=== PATIENT | male | born 1975 | race Caucasian/White ===

== ENCOUNTER 2024-03-20 22:05 | Inpatient (IN) | payer OTHER ==
[~2024-03-20] VITALS: Ht 165.1 cm; Wt 106.6 kg
[2024-03-20 22:39] VITALS: BP 169/106; PULSE 94; RESP 16; TEMP 97.7; O2SAT 98
[2024-03-21] MEDS: HYDROcodone/APAP 5/325 MG 1 TAB TAB PO ONE (02:17)
[2024-03-21] MEDS: KETOROLAC 30 MG/ML VIAL IM ONE (02:18)
[2024-03-21 02:28] LABS: BASOPHILS % (AUTO) 0.3 % (0.0-2.0); EOSINOPHILS # (AUTO) 0.2 K/uL (0-0.4)
[2024-03-21 02:32] LABS: EOSINOPHILS % (AUTO) 1.7 % (0.0-4.0); HEMATOCRIT 42.7 % (36-52); HEMOGLOBIN 14.5 g/dL (12.0-18.0); LYMPHOCYTES # (AUTO) 1.9 K/uL (2.0-11.5); LYMPHOCYTES % (AUTO) 13.7 % (20.5-51.1); MEAN CORPUSCULAR HEMOGLOBIN 29 pg (27-31); MEAN CORPUSCULAR HGB CONC 34 g/dL (33-37); MEAN CORPUSCULAR VOLUME 85.6 fL (80-94); MONOCYTES # (AUTO) 1.2 K/uL (0.8-1.0); NEUTROPHILS # (AUTO) 10.4 K/uL (1.8-7.7); NEUTROPHILS % (AUTO) 75.3 % (42.2-75.2); PLATELET COUNT (AUTO) 170 K/uL (140-450); RED BLOOD CELL COUNT(AUTO) 4.99 MIL/uL (4.20-6.10); RED CELL DISTRIBUTION WIDTH 14.2 % (11.6-13.7); WHITE BLOOD COUNT (AUTO) 13.8 K/uL (4.8-10.8)
[2024-03-21 02:36] LABS: ANION GAP 13.5 (8-16); CALCIUM 9.4 mg/dL (8.5-10.1); CARBON DIOXIDE 25.2 mmol/L (21-32); CREATININE 1.3 mg/dL (0.6-1.3); POTASSIUM 3.7 mmol/L (3.5-5.1)
[2024-03-21] MEDS ORDERED: LIDOCAINE MPF 1% 5 ML ONE ×2 (04:41)
[2024-03-21] MEDS: MORPHINE SULFATE 4 MG/ML SYR IVP ONE (05:38)
[2024-03-21] MEDS ORDERED: cefTRIAXone 2,000 MG VIAL ONE (07:00)
[2024-03-21] MEDS: cefTRIAXone 2,000 MG in DEXTROSE 5% 100 ML IV ONE (07:08)
[2024-03-21] MEDS ORDERED: DAPA5TAB PO (07:29)
[2024-03-21] MEDS ORDERED: FURO-572 PO (07:29)
[2024-03-21] MEDS ORDERED: METF-1139 PO (07:29)
[2024-03-21] MEDS ORDERED: ASPI-1205 PO (07:29)
[2024-03-21] MEDS ORDERED: ATOR10TA51 PO (07:29)
[2024-03-21] MEDS ORDERED: VANCOMYCIN 1,000 MG VIAL ONE ×2 (08:04)
[2024-03-21] MEDS: VANCOMYCIN 1,500 MG in DEXTROSE 5% 250 ML IV ONE (08:06)
[2024-03-21] MEDS ORDERED: KCL 20 MEQ IN 100 mL PREMIX 200 ML IV PRN (08:55)
[2024-03-21] MEDS ORDERED: MAG SULF 2000 MG/WATER PREMIX 50 ML IV PRN (08:55)
[2024-03-21] MEDS ORDERED: ACETAMINOPHEN 325 MG TAB PO PRN (08:55)
[2024-03-21] MEDS ORDERED: ONDANSETRON 4 MG/2 ML VIAL IVP PRN ×2 (08:55→13:30)
[2024-03-21] MEDS ORDERED: VANCOMYCIN PER PHARMACY MC PRN (08:55)
[2024-03-21 09:36] LABS: LACTIC ACID 0.7 mmol/L (0.4-2.0)
[2024-03-21 10:00] VITALS: BP 136/99; PULSE 68; RESP 18; TEMP 97; O2SAT 97
[2024-03-21] MEDS: NACL 0.9% 1,000 ML IV SCH (10:46)
[2024-03-21 11:00] VITALS: PULSE 68; RESP 19; O2SAT 98
[2024-03-21] MEDS: PROPOFOL 200 MG/20 ML VIAL IV ONE ×2 (12:56→13:13)
[2024-03-21] MEDS: KETAMINE 500 MG/5 ML VIAL ONE (12:57)
[2024-03-21] MEDS: MIDAZOLAM 2 MG/2 ML VIAL ONE (13:01)
[2024-03-21] MEDS: LIDOCAINE/EPI 1% 1:100000 20 ML VIAL INJ ONE (13:09)
[2024-03-21] MEDS: ceFAZolin 2,000 MG VIAL ONE (13:15)
[2024-03-21] MEDS: BUPIVACAINE-MPF 0.25% 30 ML VIAL INJ ONE (13:22)
[2024-03-21] MEDS: hydrALAZINE 20 MG/ML VIAL ONE (13:23)
[2024-03-21] MEDS: MORPHINE SULFATE 4 MG/ML SYR IVP PRN (15:42)
[2024-03-21 16:00] VITALS: BP 147/107; PULSE 69; RESP 18; TEMP 97; O2SAT 99
[2024-03-21] MEDS: HYDROmorphone 1 MG/ML AMP IVP PRN (16:48)
[2024-03-21] MEDS: HYDROcodone/APAP 5/325 MG 1 TAB TAB PO PRN (19:03)
[2024-03-21 20:00] VITALS: PULSE 74; RESP 19; O2SAT 98
[2024-03-21] MEDS: VANCOMYCIN 1,000 MG in DEXTROSE 5% 250 ML IV SCH (21:17)
[2024-03-21] MEDS: VANCOMYCIN 1,000 MG VIAL ONE (21:21)
[2024-03-22] VITALS: BP 152/101; PULSE 75; RESP 18; TEMP 97.5; O2SAT 99
[2024-03-22 00:52] VITALS: TEMP 99.1
[2024-03-22 04:00] VITALS: BP 161/108; PULSE 87; RESP 18; TEMP 97.3; O2SAT 99
[2024-03-22] MEDS: cefTRIAXone 1,000 MG VIAL ONE (06:15)
[2024-03-22 07:20] LABS: BASOPHILS # (AUTO) 0.1 K/uL (0.00-0.22); BASOPHILS % (AUTO) 0.4 % (0.0-2.0); EOSINOPHILS # (AUTO) 0.1 K/uL (0-0.4); EOSINOPHILS % (AUTO) 0.8 % (0.0-4.0); HEMATOCRIT 43.8 % (36-52); HEMOGLOBIN 14.8 g/dL (12.0-18.0); LYMPHOCYTES # (AUTO) 1.8 K/uL (2.0-11.5); LYMPHOCYTES % (AUTO) 11.9 % (20.5-51.1); MEAN CORPUSCULAR HEMOGLOBIN 29 pg (27-31); MEAN CORPUSCULAR HGB CONC 34 g/dL (33-37); MEAN CORPUSCULAR VOLUME 85.1 fL (80-94); MONOCYTES # (AUTO) 1.3 K/uL (0.8-1.0); MONOCYTES % (AUTO) 8.3 % (1.7-9.3); NEUTROPHILS % (AUTO) 78.6 % (42.2-75.2); PLATELET COUNT (AUTO) 180 K/uL (140-450); RED BLOOD CELL COUNT(AUTO) 5.14 MIL/uL (4.20-6.10); RED CELL DISTRIBUTION WIDTH 14.2 % (11.6-13.7); WHITE BLOOD COUNT (AUTO) 15.3 K/uL (4.8-10.8)
[2024-03-22 07:40] LABS: ANION GAP 14.6 (8-16); CALCIUM 9.1 mg/dL (8.5-10.1); CARBON DIOXIDE 23.1 mmol/L (21-32); CREATININE 1.1 mg/dL (0.6-1.3); POTASSIUM 3.7 mmol/L (3.5-5.1)
[2024-03-22 08:00] VITALS: PULSE 95; RESP 20; TEMP 97.9; O2SAT 100
[2024-03-22 08:10] LABS: MAGNESIUM 1.8 mg/dL (1.8-2.4)
[2024-03-22 16:00] VITALS: BP 146/105; PULSE 95; RESP 18; TEMP 98.1; O2SAT 98
[2024-03-22] MEDS ORDERED: VANCOMYCIN PER PHARMACY MC PRN (19:05)
[2024-03-22 20:00] VITALS: BP 148/107; PULSE 105; RESP 18; RESP 20; TEMP 97.9; TEMP 98.6; O2SAT 100; O2SAT 98
[2024-03-22] MEDS: VANCOMYCIN 1GM/DEXT 5% PREMIX 200 ML IV ONE (20:32)
[2024-03-22] MEDS: MEDS-TO-BEDS MC SCH (20:38)
[2024-03-23 04:00] VITALS: BP 149/106; PULSE 92; RESP 18; TEMP 97.3; O2SAT 98
[2024-03-23 06:08] LABS: BASOPHILS # (AUTO) 0.1 K/uL (0.00-0.22); BASOPHILS % (AUTO) 0.6 % (0.0-2.0); EOSINOPHILS # (AUTO) 0.2 K/uL (0-0.4); EOSINOPHILS % (AUTO) 1.8 % (0.0-4.0); HEMOGLOBIN 14.3 g/dL (12.0-18.0); LYMPHOCYTES # (AUTO) 2.1 K/uL (2.0-11.5); MEAN CORPUSCULAR HEMOGLOBIN 28 pg (27-31); MEAN CORPUSCULAR HGB CONC 33 g/dL (33-37); MEAN CORPUSCULAR VOLUME 85.2 fL (80-94); MONOCYTES # (AUTO) 1.3 K/uL (0.8-1.0); NEUTROPHILS # (AUTO) 9.5 K/uL (1.8-7.7); NEUTROPHILS % (AUTO) 71.6 % (42.2-75.2); PLATELET COUNT (AUTO) 170 K/uL (140-450); RED BLOOD CELL COUNT(AUTO) 5.04 MIL/uL (4.20-6.10); WHITE BLOOD COUNT (AUTO) 13.2 K/uL (4.8-10.8)
[2024-03-23 06:35] LABS: ANION GAP 13.7 (8-16); CALCIUM 8.8 mg/dL (8.5-10.1); CARBON DIOXIDE 24.6 mmol/L (21-32); CREATININE 1.1 mg/dL (0.6-1.3); POTASSIUM 3.3 mmol/L (3.5-5.1)
[2024-03-23 06:52] LABS: MAGNESIUM 1.9 mg/dL (1.8-2.4)
[2024-03-23 06:53] LABS: PHOSPHORUS 3.1 mg/dL (2.5-4.9)
[2024-03-23 08:00] VITALS: PULSE 90; RESP 18; TEMP 96.4; O2SAT 97
[2024-03-23] MEDS: metFORMIN 500 MG TAB PO SCH (08:48)
[2024-03-23] MEDS: FUROSEMIDE 20 MG TAB PO SCH (08:48)
[2024-03-23] MEDS: ASPIRIN 325 MG TAB PO SCH (08:49)
[2024-03-23] MEDS: ATORVASTATIN 20 MG TAB PO SCH (08:49)
[2024-03-23] MEDS: POTASSIUM CHLORIDE 10 MEQ TABER PO PRN (09:42)
[2024-03-23] MEDS: VANCOMYCIN 1.25GM PREMIX 250 ML IV SCH (09:42)
[2024-03-23 16:00] VITALS: BP 155/104; PULSE 78; RESP 18; TEMP 96.9; O2SAT 99
[2024-03-23 20:00] VITALS: PULSE 85; RESP 19; TEMP 97.9; O2SAT 99
[2024-03-24] VITALS: BP 155/104; PULSE 78; PULSE 85; RESP 19; TEMP 96.9; O2SAT 99
[2024-03-24] MEDS ORDERED: hydrALAZINE 25 MG TAB PO PRN (03:40)
[2024-03-24 07:14] LABS: BASOPHILS # (AUTO) 0.1 K/uL (0.00-0.22); BASOPHILS % (AUTO) 0.6 % (0.0-2.0); EOSINOPHILS # (AUTO) 0.3 K/uL (0-0.4); EOSINOPHILS % (AUTO) 2.5 % (0.0-4.0); HEMATOCRIT 39.6 % (36-52); HEMOGLOBIN 13.1 g/dL (12.0-18.0); LYMPHOCYTES # (AUTO) 1.7 K/uL (2.0-11.5); MEAN CORPUSCULAR HEMOGLOBIN 28 pg (27-31); MEAN CORPUSCULAR HGB CONC 33 g/dL (33-37); MEAN CORPUSCULAR VOLUME 85.1 fL (80-94); NEUTROPHILS # (AUTO) 9.4 K/uL (1.8-7.7); NEUTROPHILS % (AUTO) 74.9 % (42.2-75.2); PLATELET COUNT (AUTO) 168 K/uL (140-450); RED BLOOD CELL COUNT(AUTO) 4.65 MIL/uL (4.20-6.10); RED CELL DISTRIBUTION WIDTH 13.9 % (11.6-13.7); WHITE BLOOD COUNT (AUTO) 12.5 K/uL (4.8-10.8)
[2024-03-24 07:25] LABS: MAGNESIUM 1.7 mg/dL (1.8-2.4); PHOSPHORUS 3.1 mg/dL (2.5-4.9)
[2024-03-24 07:28] LABS: ANION GAP 12.7 (8-16); CALCIUM 8.7 mg/dL (8.5-10.1); CARBON DIOXIDE 24.8 mmol/L (21-32); POTASSIUM 3.5 mmol/L (3.5-5.1)
[2024-03-24 08:00] VITALS: BP 162/104; PULSE 85; PULSE 92; RESP 19; TEMP 96.8; TEMP 97.9; O2SAT 98; O2SAT 99
[2024-03-24 16:00] VITALS: BP 144/107; PULSE 69; RESP 20; TEMP 97.9; O2SAT 98
[2024-03-24] MEDS: MAGNESIUM OXIDE 400 MG TAB PO PRN (17:03)
[2024-03-24 20:00] VITALS: BP 166/100; PULSE 78; RESP 18; TEMP 98.3; O2SAT 96; O2SAT 99
[2024-03-25 04:00] VITALS: BP 151/101; PULSE 80; RESP 18; TEMP 97.3; O2SAT 96
[2024-03-25 05:39] LABS: BASOPHILS # (AUTO) 0.1 K/uL (0.00-0.22); BASOPHILS % (AUTO) 0.6 % (0.0-2.0); EOSINOPHILS # (AUTO) 0.3 K/uL (0-0.4); EOSINOPHILS % (AUTO) 3.6 % (0.0-4.0); HEMATOCRIT 38.9 % (36-52); HEMOGLOBIN 13.1 g/dL (12.0-18.0); LYMPHOCYTES # (AUTO) 2.2 K/uL (2.0-11.5); LYMPHOCYTES % (AUTO) 22.3 % (20.5-51.1); MEAN CORPUSCULAR HEMOGLOBIN 29 pg (27-31); MEAN CORPUSCULAR HGB CONC 34 g/dL (33-37); MONOCYTES # (AUTO) 0.8 K/uL (0.8-1.0); NEUTROPHILS # (AUTO) 6.4 K/uL (1.8-7.7); NEUTROPHILS % (AUTO) 65.5 % (42.2-75.2); PLATELET COUNT (AUTO) 177 K/uL (140-450); RED BLOOD CELL COUNT(AUTO) 4.58 MIL/uL (4.20-6.10); RED CELL DISTRIBUTION WIDTH 13.6 % (11.6-13.7); WHITE BLOOD COUNT (AUTO) 9.7 K/uL (4.8-10.8)
[2024-03-25 06:37] LABS: ANION GAP 12.9 (8-16); CALCIUM 9.3 mg/dL (8.5-10.1); CARBON DIOXIDE 25.7 mmol/L (21-32); POTASSIUM 3.6 mmol/L (3.5-5.1)
[2024-03-25 07:06] LABS: MAGNESIUM 1.7 mg/dL (1.8-2.4); PHOSPHORUS 3.9 mg/dL (2.5-4.9)
[2024-03-25 08:00] VITALS: PULSE 80; RESP 18; TEMP 97.3; O2SAT 99
[2024-03-25] MEDS ORDERED: DOXY-487 PO (10:52)
[2024-03-25] MEDS ORDERED: LACT1TAB47 PO (10:52)
[2024-03-25 12:11] VITALS: BP 154/104; PULSE 20; RESP 20; TEMP 97.3
[2024-03-25] MEDS ORDERED: DOXY-22 PO (19:28)
[2025-03-21] MEDS ORDERED: ESMOLOL 100 MG/10 ML VIAL IV ONE (13:00)
== END 2024-03-25 14:35 | disposition home or self-care (01) | DRG 313 ==
LOC: MED 22:05 → MMU 03-21 08:51 → MTU 03-21 09:26
PROVIDERS: ADMIT Hospitalist; ATTEND Hospitalist
PROC: 0SBG0ZZ Excision of Left Ankle Joint, Open Approach (ICD-10-PCS; principal; 2024-03-21 12:00)
DX: M00.872 Arthritis due to other bacteria, left ankle and foot (principal); I11.0 Hypertensive heart disease with heart failure; I50.9 Heart failure, unspecified; E11.9 Type 2 diabetes mellitus without complications; F14.90 Cocaine use, unspecified, uncomplicated; F10.90 Alcohol use, unspecified, uncomplicated; Z79.899 Other long term (current) drug therapy
CPT/HCPCS: 20605; 36415; 71045; 73630; 80048; 80202; 83605; 83735; 84100; 84550; 85025; 85651; 86140; 87040; 87070; 87075; 87081; 87205; 93005; 96365; 96367; 96372; 97110; 97112; 97116; 97163-GP; 97530; 99285; J0360; J0696; J1170; J1644; J1885; J2001; J2250; J2270; J2704; J3370; J3372; J3490; J7060; Q0092

== ENCOUNTER 2024-03-26 14:36 | Emergency (ER) | payer OTHER ==
[~2024-03-26] VITALS: Ht 165.1 cm; Wt 106.3 kg
[~2024-03-26 14:36] MED LIST: ASPI-1205 PO; ATOR10TA51 PO; DAPA5TAB PO; DOXY-22 PO; FURO-572 PO; LACT1TAB47 PO; METF-1139 PO
[2024-03-26 15:27] VITALS: BP 128/95; PULSE 73; RESP 18; TEMP 97.7; O2SAT 97
[2024-03-26] MEDS ORDERED: cefTRIAXone 2,000 MG VIAL ONE (17:24)
[2024-03-26] MEDS: cefTRIAXone 2,000 MG in DEXTROSE 5% 100 ML IV ONE (17:27)
[2024-03-26] MEDS: MORPHINE SULFATE 2 MG/ML SYR IVP ONE (17:51)
[2024-03-26 18:08] VITALS: BP 127/94; PULSE 66; RESP 12; TEMP 98; O2SAT 96
== END 2024-03-26 18:08 | disposition home or self-care (01) ==
LOC: MED 14:36
DX: M00.9 Pyogenic arthritis, unspecified (principal); Z45.2 Encounter for adjustment and management of vascular access device; E11.9 Type 2 diabetes mellitus without complications; I10 Essential (primary) hypertension; E78.5 Hyperlipidemia, unspecified; Z79.84 Long term (current) use of oral hypoglycemic drugs; Z79.82 Long term (current) use of aspirin; Z79.1 Long term (current) use of non-steroidal anti-inflammatories (NSAID); Z79.899 Other long term (current) drug therapy; Z86.79 Personal history of other diseases of the circulatory system
CPT/HCPCS: 36410; 96365; 96375; 99284; J0696; J2270

== ENCOUNTER 2024-04-04 10:29 | Emergency (ER) | payer OTHER ==
[~2024-04-04] VITALS: Ht 165.1 cm; Wt 102.5 kg
[2024-04-04 10:38] VITALS: BP 119/83; PULSE 40; RESP 15; TEMP 97; O2SAT 96
[2024-04-04 11:25] VITALS: BP 119/80; PULSE 110; RESP 18; TEMP 98; O2SAT 100
[2024-04-04 12:10] LABS: BASOPHILS # (AUTO) 0.1 K/uL (0.00-0.22); BASOPHILS % (AUTO) 0.7 % (0.0-2.0); EOSINOPHILS # (AUTO) 0.2 K/uL (0-0.4); EOSINOPHILS % (AUTO) 1.9 % (0.0-4.0); HEMATOCRIT 43.7 % (36-52); HEMOGLOBIN 14.4 g/dL (12.0-18.0); LYMPHOCYTES # (AUTO) 1.8 K/uL (2.0-11.5); MEAN CORPUSCULAR HEMOGLOBIN 28 pg (27-31); MEAN CORPUSCULAR HGB CONC 33 g/dL (33-37); MEAN CORPUSCULAR VOLUME 85.6 fL (80-94); MONOCYTES # (AUTO) 0.9 K/uL (0.8-1.0); MONOCYTES % (AUTO) 7.3 % (1.7-9.3); NEUTROPHILS # (AUTO) 9.1 K/uL (1.8-7.7); NEUTROPHILS % (AUTO) 75.1 % (42.2-75.2); PLATELET COUNT (AUTO) 301 K/uL (140-450); RED BLOOD CELL COUNT(AUTO) 5.11 MIL/uL (4.20-6.10); RED CELL DISTRIBUTION WIDTH 13.5 % (11.6-13.7); WHITE BLOOD COUNT (AUTO) 12.1 K/uL (4.8-10.8)
[2024-04-04 12:36] LABS: LACTIC ACID 1.5 mmol/L (0.4-2.0)
[2024-04-04 12:43] LABS: ALBUMIN 3.6 g/dL (3.4-5.0); ANION GAP 14.3 (8-16); CALCIUM 9.4 mg/dL (8.5-10.1); CARBON DIOXIDE 27.2 mmol/L (21-32); CREATININE 1.4 mg/dL (0.6-1.3); POTASSIUM 4.5 mmol/L (3.5-5.1); TOTAL BILIRUBIN 0.2 mg/dL (0.0-1.0); TOTAL PROTEIN, SERUM 7.8 g/dL (6.4-8.2)
[2024-04-04] MEDS ORDERED: IBUP-2213 PO (13:47)
[2024-04-04] MEDS ORDERED: DICL100G32 TP (13:47)
[2024-04-04] MEDS: KETOROLAC 30 MG/ML VIAL IVP ONE (14:17)
== END 2024-04-04 14:25 | disposition home or self-care (01) ==
LOC: MED 10:29
DX: M25.572 Pain in left ankle and joints of left foot (principal); M25.472 Effusion, left ankle; M00.9 Pyogenic arthritis, unspecified; E11.9 Type 2 diabetes mellitus without complications; I10 Essential (primary) hypertension; Z98.890 Other specified postprocedural states; Z79.899 Other long term (current) drug therapy; Z79.82 Long term (current) use of aspirin
CPT/HCPCS: 36415; 73610; 80053; 83605; 85025; 85651; 86140; 96374; 99284; J1885; Q0092